=== PATIENT | female | born 1975 | race Caucasian/White ===

== ENCOUNTER 2019-07-15 17:14 | Emergency (ER) | payer BC, OTHER ==
[~2019-07-15] VITALS: Ht 167.7 cm; Wt 105.1 kg
--- NOTE | 2019-07-15 17:26 | ED General ---
General Stated Complaint: DIARRHEA,CHEST PAINS,NAUSEA History of Present Illness Date Seen by Provider: Jul 15, 2019 Time Seen by Provider: 17:26 Initial Comments Patient presenting to emergency department for evaluation of multiple symptoms including chest pain nausea diarrhea. She says this morning that she woke up and felt fine however later on the morning all at rest she started experiencing chest pressure from her upper neck on the way down into her epigastric region. It did not radiate anywhere else however causes her nausea. No vomiting diaphoresis or shortness of breath. She says she is also had 7 episodes of watery nonbloody stools as well. No recent antibiotics travel or chemotherapy. She says she has no history of hypertension diabetes high cholesterol diabetes or immediate family members with coronary artery disease. She denies her having prior cardiac risk stratification such as stress test or heart catheterization. She says the pain has been constant throughout the entire day and is not changed by activity movements eating or anything else that she can think of. She is in no obvious distress with normal vital signs. Allergies and Home Medications Allergies Coded Allergies: No Known Drug Allergies (Unverified , 07/15/19) Patient Home Medication List Home Medication List Reviewed: Yes Review of Systems Review of Systems Constitutional: no symptoms reported EENTM: no symptoms reported Respiratory: no symptoms reported Cardiovascular: chest pain Gastrointestinal: diarrhea, nausea Genitourinary: no symptoms reported Musculoskeletal: no symptoms reported Skin: no symptoms reported Psychiatric/Neurological: No Symptoms Reported All Other Systems Reviewed Negative Unless Noted: Yes Past Hbjtllp-Wuyarh-Jrcnif Hx Patient Social History Recent Foreign Travel: No Contact w/Someone Who Travel: No Physical Exam Vital Signs Vital Signs - First Documented 07/15/19 17:20 Temp 37.1 Pulse 99 Resp 19 B/P (MAP) 139/84 (102) Pulse Ox 98 O2 Delivery Room Air Capillary Refill : Height, Weight, BMI Height: '" Weight: lbs. oz. kg; BMI Method: General Appearance: No Apparent Distress, WD/WN HEENT: PERRL/EOMI Neck: Supple Respiratory: Normal Breath Sounds, No Respiratory Distress Cardiovascular: Regular Rate, Rhythm Gastrointestinal: Non Tender, Soft Back: Normal Inspection Extremity: Normal Capillary Refill Neurologic/Psychiatric: Alert, Oriented x3 Skin: Warm/Dry Progress/Results/Core Measures Suspected Sepsis SIRS Temperature: Pulse: Respiratory Rate: Laboratory Tests 07/15/19 17:25: White Blood Count 12.0H Blood Pressure / Mean: Laboratory Tests 07/15/19 17:25: Creatinine 0.88, Platelet Count 453H, Total Bilirubin 0.9 Results/Orders Lab Results Laboratory Tests Test 07/15/19 17:25 07/15/19 19:39 Range/Units White Blood Count 12.0 H 4.3-11.0 10^3/uL Red Blood Count 5.49 4.35-5.85 10^6/uL Hemoglobin 10.7 L 11.5-16.0 G/DL Hematocrit 36 35-52 % Mean Corpuscular Volume 66 L 80-99 FL Mean Corpuscular Hemoglobin 19 L 25-34 PG Mean Corpuscular Hemoglobin Concent 30 L 32-36 G/DL Red Cell Distribution Width 17.3 H 10.0-14.5 % Platelet Count 453 H 130-400 10^3/uL Mean Platelet Volume 10.0 7.4-10.4 FL Neutrophils (%) (Auto) 82 H 42-75 % Lymphocytes (%) (Auto) 11 L 12-44 % Monocytes (%) (Auto) 6 0-12 % Eosinophils (%) (Auto) 1 0-10 % Basophils (%) (Auto) 0 0-10 % Neutrophils # (Auto) 9.8 H 1.8-7.8 X 10^3 Lymphocytes # (Auto) 1.4 1.0-4.0 X 10^3 Monocytes # (Auto) 0.7 0.0-1.0 X 10^3 Eosinophils # (Auto) 0.1 0.0-0.3 10^3/uL Basophils # (Auto) 0.0 0.0-0.1 10^3/uL D-Dimer 0.44 0.00-0.49 UG/ML Sodium Level 138 135-145 MMOL/L Potassium Level 3.5 L 3.6-5.0 MMOL/L Chloride Level 100 98-107 MMOL/L Carbon Dioxide Level 24 21-32 MMOL/L Anion Gap 14 5-14 MMOL/L Blood Urea Nitrogen 11 7-18 MG/DL Creatinine 0.88 0.60-1.30 MG/DL Estimat Glomerular Filtration Rate > 60 BUN/Creatinine Ratio 13 Glucose Level 104 70-105 MG/DL Calcium Level 8.8 8.5-10.1 MG/DL Corrected Calcium 8.4 L 8.5-10.1 MG/DL Total Bilirubin 0.9 0.1-1.0 MG/DL Aspartate Amino Transf (AST/SGOT) 15 5-34 U/L Alanine Aminotransferase (ALT/SGPT) 13 0-55 U/L Alkaline Phosphatase 84 40-136 U/L Troponin I < 0.30 <0.30 NG/ML Total Protein 7.6 6.4-8.2 GM/DL Albumin 4.5 3.2-4.5 GM/DL Lipase 25 8-78 U/L Urine Test NEGATIVE NEGATIVE My Orders Orders - APOORVA ARTEAGA DO Cbc With Automated Diff (07/15/19 17:34) Comprehensive Metabolic Panel (07/15/19 17:34) Lipase (07/15/19 17:34) Troponin I Fs (07/15/19 17:34) Ekg Tracing (07/15/19 17:34) Chest 1 View Ap/Pa Only (07/15/19 17:34) Fibrin Degradation Products (07/15/19 17:34) Hcg,Qualitative Urine (07/15/19 17:34) Aspirin Chewable Tablet (Baby Aspirin Ch (07/15/19 17:45) Ondansetron Injection (Zofran Injectio (07/15/19 17:45) Ns Iv 1000 Ml (Sodium Chloride 0.9%) (07/15/19 17:45) Ns Iv 1000 Ml (Sodium Chloride 0.9%) (07/15/19 17:45) Antacid Suspension (Mylanta Suspension (07/15/19 17:45) Morphine Injection (Morphine Injection (07/15/19 17:34) Lidocaine 2% Viscous 15 Ml (Xylocaine Vi (07/15/19 17:45) Ct Abdomen/Pelvis W (07/15/19 18:30) Iohexol Injection (Omnipaque 350 Mg/Ml 1 (07/15/19 19:15) Received Contrast (Hold Metformin- Contr (07/15/19 19:15) Sodium Chloride Flush (Catheter Flush Sy (07/15/19 19:15) Ns (Ivpb) (Sodium Chloride 0.9% Ivpb Bag (07/15/19 19:15) Medications Given in ED Current Medications Medications Dose Ordered Sig/Rafa Route Start Time Stop Time Status Last Admin Dose Admin Al Hydrox/Mg Hydrox/Simethicone 30 ml ONCE ONCE PO 07/15/19 17:45 07/15/19 17:46 DC 07/15/19 18:30 30 ML Aspirin 324 mg ONCE ONCE PO 07/15/19 17:45 07/15/19 17:46 DC 07/15/19 17:53 324 MG Iohexol 100 ml ONCE ONCE IV 07/15/19 19:15 07/15/19 19:16 DC 07/15/19 19:23 100 ML Lidocaine HCl 5 ml ONCE ONCE PO 07/15/19 17:45 07/15/19 17:46 DC 07/15/19 18:31 5 ML Ondansetron HCl 4 mg ONCE ONCE IVP 07/15/19 17:45 07/15/19 17:46 DC 07/15/19 17:54 4 MG Sodium Chloride 10 ml NEEDED PRN IV 07/15/19 19:15 07/15/19 19:23 10 ML Sodium Chloride 100 ml ONCE ONCE IV 07/15/19 19:15 07/15/19 19:16 DC 07/15/19 19:23 80 ML Sodium Chloride 1,000 ml ONCE ONCE IV 07/15/19 17:45 07/15/19 17:46 DC 07/15/19 17:51 1,000 ML Vital Signs/I&O 07/15/19 17:20 Temp 37.1 Pulse 99 Resp 19 B/P (MAP) 139/84 (102) Pulse Ox 98 O2 Delivery Room Air Capillary Refill : Progress Note : Progress Note Patient would be considered low risk for acute coronary syndrome given her EKG appears normal and she has no risk factors. I'll check further labs and imaging if necessary treat her symptoms and reassess. Workup came back negative including negative EKG and troponin more than 6 hours out from onset of symptoms. Given she is low risk and I do not see any reason for further testing or inpatient evaluation for her chest pain. She said that the GI cocktail completely took away her chest pain and that she has no further nausea or diarrhea. I discussed all and subtle findings on labs and CT of the need for follow-up. Patient will be discharged in stable condition told to follow primary care provider within 2-3 days and come back to the ED sooner with worsening pain fevers vomiting or other general concerns. Patient aware and agreeable with plan for discharge and verbalized understanding of the above instructions. Departure Impression Primary Impression: Nausea alone Additional Impressions: Diarrhea Chest pain at rest Disposition: HOME, SELF-CARE Condition: Stable Departure-Patient Inst. Patient Instructions: Gastritis (DC) Scripts Ondansetron (Ondansetron Odt) 4 Mg Tab.rapdis 4 MG PO Q6H PRN for NAUSEA/VOMITING-1ST LINE, #10 TAB Prov: APOORVA ARTEAGA DO 07/15/19 Hydrocodone/Acetaminophen ([place] 5-325 Tablet) 1 Each Tablet 1 TAB PO Q6H for Pain MDD 10 TABS for 7 Days, #10 TAB Prov: APOORVA ARTEAGA DO 07/15/19 APOORVA ARTEAGA DO Jul 15, 2019 17:26
[2019-07-15] MEDS ORDERED: morphine INJ 10 MG/ML 1ML (SYR OR VIAL) IVP STA (17:34)
[2019-07-15] MEDS ORDERED: LIDOCAINE 2% VISCOUS 15 ML UDC PO ONE (17:45)
[2019-07-15] MEDS ORDERED: ONDANSETRON 4 MG/2 ML (SDV) Z0FRAN IVP ONE (17:45)
[2019-07-15] MEDS ORDERED: ASPIRIN 81 MG CHEW (CHILDREN'S ASA) PO ONE (17:45)
[2019-07-15] MEDS ORDERED: NS IV 1000 ML 1,000 ML IV SCH (17:45)
[2019-07-15] MEDS ORDERED: ANTACID SUSP 30 ML UDC (MYLANTA) PO ONE (17:45)
[2019-07-15] MEDS ORDERED: NS 1000 ML IV BAG IV ONE (17:45)
[2019-07-15 17:51] LABS: HEMATOCRIT 36 % (35-52); HEMOGLOBIN 10.7 G/DL (11.5-16.0); MEAN CORPUSCULAR HEMOGLOBIN 19 PG (25-34); MEAN CORPUSCULAR VOLUME 66 FL (80-99)
[2019-07-15 17:52] LABS: BASOPHILS % (AUTO) 0 % (0-10); EOSINOPHILS # (AUTO) 0.1 10^3/uL (0.0-0.3); EOSINOPHILS % (AUTO) 1 % (0-10); LYMPHOCYTES # (AUTO) 1.4 X 10^3 (1.0-4.0); LYMPHOCYTES % (AUTO) 11 % (12-44); MEAN CORPUSCULAR HGB CONC 30 G/DL (32-36); MONOCYTES # (AUTO) 0.7 X 10^3 (0.0-1.0); MONOCYTES % (AUTO) 6 % (0-12); NEUTROPHILS # (AUTO) 9.8 X 10^3 (1.8-7.8); NEUTROPHILS % (AUTO) 82 % (42-75); PLATELET COUNT 453 10^3/uL (130-400); RED CELL DISTRIBUTION WIDTH 17.3 % (10.0-14.5)
[2019-07-15 18:15] LABS: BUN/CREATININE RATIO 13; CALCIUM 8.8 MG/DL (8.5-10.1); CARBON DIOXIDE 24 MMOL/L (21-32); CHLORIDE 100 MMOL/L (98-107); CREATININE SERUM 0.88 MG/DL (0.60-1.30); GFR ESTIMATED > 60; GLUCOSE 104 MG/DL (70-105); POTASSIUM 3.5 MMOL/L (3.6-5.0); SODIUM 138 MMOL/L (135-145)
[2019-07-15 18:16] LABS: ALANINE AMINOTRANSFERASE 13 U/L (0-55); ALBUMIN 4.5 GM/DL (3.2-4.5); ALKALINE PHOSPHATASE 84 U/L (40-136); BILIRUBIN,TOTAL 0.9 MG/DL (0.1-1.0); LIPASE 25 U/L (8-78); TOTAL PROTEIN 7.6 GM/DL (6.4-8.2)
--- NOTE | 2019-07-15 18:29 | Diagnostic Imaging Report ---
INDICATION: Chest pain and diarrhea COMPARISON: No previous study is available for comparison at this time. FINDINGS: Heart size and pulmonary vasculature are within normal limits, and the lungs are clear, bilaterally. There are surgical clips seen in the neck. Monitoring leads overlie the chest. IMPRESSION: Unremarkable chest. Dictated by: Dictated on workstation # [id number]
[2019-07-15] MEDS ORDERED: NS 100 ML (IVPB) BAG IV ONE (19:15)
[2019-07-15] MEDS ORDERED: CATHETER FLUSH 10 ML SYR IV PRN (19:15)
[2019-07-15] MEDS ORDERED: HOLD METFORMIN - RECEIVED CONTRAST 20 ML VIAL IV SCH (19:15)
[2019-07-15] MEDS ORDERED: IOHEXOL 350 MG/ML 100 ML (OMNIPAQUE 350) VIAL IV ONE (19:15)
--- NOTE | 2019-07-15 20:03 | Diagnostic Imaging Report ---
CT ABDOMEN/PELVIS W PROCEDURE: CT abdomen and pelvis with contrast. TECHNIQUE: Multiple contiguous axial images were obtained through the abdomen and pelvis after administration of intravenous contrast. INDICATION: Nausea and diarrhea COMPARISON: None. FINDINGS: There is mild low-density throughout the liver indicating probable steatosis. In addition, there is an approximately 1 cm peripheral low density nodule in the anterolateral right hepatic lobe which may represent a cyst. Note is made of circumscribed density along the right heart border with Hounsfield units indicating probable cyst. This may represent pericardial cyst. No focal hepatic, adrenal gland or splenic lesion is identified. There is mild hiatal hernia. Note is made of numerous bilateral parapelvic cysts without evidence of hydronephrosis. There is no evidence of renal mass or perinephric fluid. There is no evidence of peritoneal free fluid. No localized inflammation is identified. The partially opacified urinary bladder is unremarkable. IMPRESSION: Mild hiatal hernia. In addition, there are probable right pericardial cysts, right lobe hepatic cyst and bilateral parapelvic renal cyst. There is no other evidence of acute abnormality. In particular, there is no evidence of bowel obstruction. Dictated by: Dictated on workstation # [id number]
[2019-07-15] MEDS ORDERED: ONDA4TAB11 PO (20:34)
[2019-07-15] MEDS ORDERED: HYDR-4226 PO (20:34)
[2019-07-15 20:38] VITALS: BP 124/77
== END 2019-07-15 20:38 | disposition home or self-care (01) ==
LOC: ER FS 17:16
DX: R11.0 Nausea (principal); R19.7 Diarrhea, unspecified; R07.89 Other chest pain
CPT/HCPCS: 36415; 71045; 74177; 80053; 83690; 84484; 84703; 85025; 85379; 93005